=== PATIENT | male | born 1960 | race Caucasian/White ===

== ENCOUNTER 2018-09-13 07:00 | Emergency (ER) | payer OTHER ==
[2018-09-13 07:21] LABS: ADD MAN DIFF? NO
[2018-09-13 07:24] LABS: ABNORMAL IP MESSAGE 1; BASOPHILS % 0.4 % (0.0-2.0); EOSINOPHILS # 0.4 10^3/ul (0.0-0.5); EOSINOPHILS % 6.6 % (0.0-7.0); HEMATOCRIT 34.9 % (42.0-52.0); HEMOGLOBIN 11.3 g/dl (14.0-18.0); LYMPHOCYTES # 0.8 10^3/ul (0.8-2.9); LYMPHOCYTES % 13.7 % (15.0-51.0); MEAN CORPUSCULAR HEMOGLOBIN 31.9 pg (29.0-33.0); MEAN CORPUSCULAR HGB CONC 32.4 g/dl (32.0-37.0); MEAN CORPUSCULAR VOLUME 98.6 fl (82.0-101.0); MONOCYTE # 0.9 10^3/ul (0.3-0.9); MONOCYTES % 16.8 % (0.0-11.0); NEUTROPHIL # 3.4 10^3/ul (1.6-7.5); NEUTROPHILS % 62.3 % (39.0-77.0); PLATELET COUNT 96 10^3/UL (140-415); POSITIVE DIFF @See below; RED BLOOD COUNT 3.54 10^6/ul (4.70-6.10); RED CELL DISTRIBUTION WIDTH 15.4 % (11.5-14.5)
[2018-09-13 07:24] LABS: WHITE BLOOD COUNT 5.5 10^3/ul (4.8-10.8)
[2018-09-13] MEDS: ASPIRIN 81 MG TAB PO (07:26)
[2018-09-13] MEDS: NITROGLYCERIN 2% 1 GM OINT PKT TD (07:27)
[2018-09-13] MEDS ORDERED: NITROGLYCERIN (SL) 0.4 MG TAB SL (07:30)
[2018-09-13 07:49] LABS: ANION GAP 19 (5-13); BLOOD UREA NITROGEN 101 mg/dl (7-20); CALCIUM 7.6 mg/dl (8.4-10.2); CARBON DIOXIDE 19 mmol/L (21-31); CHLORIDE 106 mmol/L (97-110); POTASSIUM 5.3 mmol/L (3.5-5.1); SODIUM 144 mmol/L (135-144)
[2018-09-13 07:57] LABS: CREATININE 16.32 mg/dl (0.61-1.24); Estimated GFR 3 mL/min (>60)
[2018-09-13 07:58] LABS: GLUCOSE 37 mg/dl (70-220)
[2018-09-13] MEDS ORDERED: DEXTROSE 50% 50 ML SYRINGE (07:59)
[2018-09-13 08:01] LABS: TROPONIN-I 0.064 ng/ml (0.000-0.120)
[2018-09-13] MEDS: DEXTROSE 50% 50 ML SYRINGE IV (08:03)
[2018-09-13] MEDS: LABETALOL HCL 20MG INJ IV ×2 (08:52→10:44)
[2018-09-13 10:38] LABS: ANISOCYTOSIS 1+ (0-0); BAND NEUTROPHILS % (M) 1 % (0-4); BURR CELLS 1+ (0-0); EOSINOPHILS % (M) 4 % (0-7); LYMPHOCYTES #M 0.8 10^3/ul (0.8-2.9); LYMPHOCYTES % (M) 16 % (15-51); METAMYELOCYTES %M 1 % (0-0); MONOCYTE #M 1.2 10^3/ul (0.3-0.9); MONOCYTES % (M) 22 % (0-11); OVALOCYTES 1+ (0-0); PLATELET ESTIMATE DECREASED; POIKILOCYTOSIS 3+ (0-0); REACTIVE LYMPHOCYTES #M 0.1 10^3/ul (0.0-0.0); REACTIVE LYMPHOCYTES% (M) 3 % (0-0); SEG NEUT #M 2.9 10^3/ul (1.6-7.5); SEGMENTED NEUTROPHILS (M) % 53 % (39-77)
[2018-09-13] MEDS: DEXTROSE 5%-0.9% NACL 1,000 ML IV (10:52)
[2018-09-13] MEDS ORDERED: ACETAMINOPHEN 325 MG TAB PO (12:30)
[2018-09-13] MEDS ORDERED: ONDANSETRON 4 MG INJ IV (12:30)
== END 2018-09-13 13:03 | disposition short-term general hospital (02) ==
LOC: E/R 07:00
DX: I16.0 Hypertensive urgency (principal); J81.0 Acute pulmonary edema; E87.5 Hyperkalemia; N18.6 End stage renal disease; E11.22 Type 2 diabetes mellitus with diabetic chronic kidney disease; I50.9 Heart failure, unspecified; I13.2 Hypertensive heart and chronic kidney disease with heart failure and with stage 5 chronic kidney disease, or end stage renal disease; Z99.2 Dependence on renal dialysis
CPT/HCPCS: 36415; 71045; 80048; 82962; 84484; 85025; 93005; 96374; 96375; 96376; 99285-25